=== PATIENT | female | born 1975 | race Caucasian/White ===

== ENCOUNTER 2017-05-25 10:54 | Outpatient (CLI) | payer OTHER | END 2017-05-25 11:17 | disposition home or self-care (01) | LOC: MAMO-SONO 10:54 | DX: N64.4 Mastodynia (principal); Z12.31 Encounter for screening mammogram for malignant neoplasm of breast ==

== ENCOUNTER 2017-08-24 12:41 | Inpatient (IN) | payer OTHER ==
[~2017-08-24] VITALS: Ht 157.5 cm; Wt 78.0 kg
== END 2017-08-28 13:06 | disposition home or self-care (01) | DRG 621 ==
LOC: O/R 08-27 06:30 → SURH 08-27 07:00 → SURG 08-27 19:19
PROVIDERS: Specialist
PROC: 0J090ZZ Alteration of Buttock Subcutaneous Tissue and Fascia, Open Approach (ICD-10-PCS; principal; 2017-08-27 07:00)
PROC: 0H0V0ZZ Alteration of Bilateral Breast, Open Approach (ICD-10-PCS; 2017-08-27 07:00)
PROC: 0HB7XZZ Excision of Abdomen Skin, External Approach (ICD-10-PCS; 2017-08-27 07:00)
DX: E88.1 Lipodystrophy, not elsewhere classified (principal); E65 Localized adiposity; N62 Hypertrophy of breast

== ENCOUNTER 2019-02-15 11:26 | Outpatient (CLI) | payer OTHER | END 2019-02-15 12:49 | disposition home or self-care (01) | LOC: MAMO-SONO 11:26 | DX: Z12.31 Encounter for screening mammogram for malignant neoplasm of breast (principal); Z87.898 Personal history of other specified conditions; N64.4 Mastodynia ==

== ENCOUNTER 2020-08-30 10:56 | Outpatient (CLI) | payer OTHER | END 2020-08-30 11:09 | disposition home or self-care (01) | LOC: MAMO-SONO 10:56 | PROVIDERS: ATTEND Obstetrics & Gynecology Obstetrics | DX: N64.4 Mastodynia (principal) ==

== ENCOUNTER 2021-04-16 10:06 | Outpatient (CLI) | payer OTHER | END 2021-04-16 10:21 | disposition home or self-care (01) | LOC: MAMO-SONO 10:06 | PROVIDERS: ATTEND Internal Medicine | DX: N63.13 Unspecified lump in the right breast, lower outer quadrant (principal) ==

== ENCOUNTER 2023-03-04 10:04 | Outpatient (CLI) | payer OTHER | END 2023-03-04 10:20 | disposition home or self-care (01) | LOC: MAMO-SONO 10:04 | PROVIDERS: ATTEND Internal Medicine | DX: N63.13 Unspecified lump in the right breast, lower outer quadrant (principal); Z12.31 Encounter for screening mammogram for malignant neoplasm of breast ==

== ENCOUNTER 2024-05-24 11:25 | Outpatient (CLI) | payer OTHER | END 2024-05-24 11:34 | disposition home or self-care (01) | LOC: MAMO-SONO 11:25 | PROVIDERS: ATTEND Internal Medicine | DX: N60.39 Fibrosclerosis of unspecified breast (principal); Z12.39 Encounter for other screening for malignant neoplasm of breast ==

== ENCOUNTER 2024-07-11 15:45 | Outpatient (CLI) | payer OTHER | END 2024-07-11 15:47 | disposition home or self-care (01) | LOC: SONOGRAMA 15:45 | PROVIDERS: ATTEND Pathology Anatomic Pathology & Clinical Pathology | DX: D34 Benign neoplasm of thyroid gland (principal); E07.89 Other specified disorders of thyroid; E04.2 Nontoxic multinodular goiter ==